=== PATIENT | male | born 1990 | race Caucasian/White ===

== ENCOUNTER 2017-02-17 21:07 | Emergency (ER) | payer SELFPAY ==
[2017-02-17] MEDS ORDERED: ONDANSETRON 4 MG/2 ML VIAL IVP STA (21:31)
[2017-02-17] MEDS ORDERED: SODIUM CHLORIDE 0.9% 1,000 ML IV ONE (21:31)
[2017-02-17] MEDS ORDERED: ONDANSETRON 4 MG/2 ML VIAL ONE (21:32)
--- NOTE | 2017-02-17 21:39 | ED Physician Documentation ---
PD HPI NVD - Stated complaint Stated Complaint: VOMITTING - Chief complaint Chief Complaint: Abd Pain - History obtained from History obtained from: Patient - History of Present Illness Timing - onset: Today Timing - details: Gradual onset, Still present Associated symptoms: Abdominal pain Contributing factors: Bad food Worsened by: Eating Similar symptoms before: No diagnosis Recently seen: Not recently seen - Additonal information Additional information: Patient is a 27 year old male who is presenting to the emergency department for abdominal pain, nausea, vomiting and diarrhea. Patient states that he and his girlfriend had cody burritos yesterday and that they woke up today with nausea, vomiting and abdominal pain. Patient states that his girlfriend got better but he got progressively worse. Patient states that he has had multiple episodes of vomiting and diarrhea throughout the day. Review of Systems Constitutional: denies: Fever, Chills Eyes: denies: Photophobia Ears: denies: Ear pain, Drainage/discharge Nose: denies: Rhinorrhea / runny nose, Congestion Throat: denies: Dental pain / toothache, Oral lesions / sores Cardiac: denies: Chest pain / pressure Respiratory: denies: Cough GI: reports: Abdominal Pain, Nausea, Vomiting, Diarrhea : denies: Dysuria, Frequency, Unable to Void Skin: denies: Rash, Lesions Musculoskeletal: denies: Neck pain, Back pain, Extremity pain Neurologic: denies: Generalized weakness, Focal weakness, Numbness Immunocompromised: denies: Immunocompromised PD PAST MEDICAL HISTORY - Past Medical History Past Medical History: Yes Psych: Depression, Anxiety, ADD/ADHD - Past Surgical History Past Surgical History: No - Present Medications Home Medications: Ambulatory Orders Medication Instructions Recorded Confirmed Dicyclomine [Bentyl] 10 mg PO TID #15 capsule 02/17/17 Ondansetron Odt [Zofran] 4 mg TL Q6H PRN #14 tablet 02/17/17 - Allergies Allergies/Adverse Reactions: Allergies Allergy/AdvReac Type Severity Reaction Status Date / Time No Known Drug Allergies Allergy Verified 02/17/17 21:11 - Social History Does the pt smoke?: Yes Smoking Status: Current every day smoker Does the pt drink ETOH?: Yes Does the pt have substance abuse?: Yes Substance Use and Type: Marijuana - POLST Patient has POLST: No PD ED PE NORMAL - Vitals Vital signs reviewed: Yes - General General: Alert and oriented X 3, No acute distress, Well developed/nourished - HEENT HEENT: Atraumatic, PERRL - Cardiac Cardiac: No murmur, No rub - Derm Derm: Normal color, Warm and dry, No rash - Extremities Extremities: No deformity - Neuro Neuro: Alert and oriented X 3, office lead 2-12 intact, No motor deficit, No sensory deficit, Normal speech - Psych Psych: Normal mood, Normal affect PD ED PE EXPANDED - HEENT HEENT: Dry mucous membranes - Cardiac Cardiac: Tachy - Abdomen Abdomen: Tender to palpation, Epigastric. No: Rebound, Guarding Results - Vitals Vitals: Vital Signs - 24 hr 02/17/17 21:11 Temperature 36.8 C Heart Rate 122 H Respiratory 18 Rate Blood Pressure 123/75 O2 Saturation 97 Oxygen O2 Source Room air - Labs Labs: Laboratory Tests 02/17/17 02/17/17 21:30 21:30 WBC 17.7 H RBC 5.87 Hgb 18.0 Hct 52.1 H MCV 88.7 MCH 30.6 MCHC 34.5 RDW 13.3 Plt Count 335 MPV 7.3 L Neut # 16.5 H Lymph # 0.5 L [place] # 0.5 Eos # 0.0 Baso # 0.2 H Absolute Nucleated RBC 0.01 Nucleated RBCs 0.1 Sodium 141 Potassium 3.9 Chloride 107 Carbon Dioxide 23 Anion Gap 11.0 BUN 17 Creatinine 1.0 Estimated GFR (MDRD) 90 Glucose 125 H Calcium 10.2 Total Bilirubin 1.0 AST 27 ALT 20 Alkaline Phosphatase 65 Total Protein 9.2 H Albumin 5.3 Globulin 3.9 Albumin/Globulin Ratio 1.4 Lipase 18 L PD MEDICAL DECISION MAKING - ED course Complexity details: reviewed old records, reviewed results, re-evaluated patient , considered differential, d/w patient ED course: Patient was seen and examined at bedside. Patient was tachycardic. IV access was gained and labs were drawn. Patient was treated with a fluid bolus, zofran and bentyl. When patient's labs came back they showed he was hemoconcentrated. Patient stated that he was feeling much better. Patient was able to tolerate PO without difficulty and patient was stable for discharge with outpatient follow up. Departure - Departure Disposition: 01 Home, Self Care Clinical Impression: Gastroenteritis Condition: Good Instructions: ED Gastroenteritis Bacterial Follow-Up: primary,care provider [Other] - Within 1 week (if symptoms persist) Prescriptions: Dicyclomine [Bentyl] 10 mg PO TID #15 capsule Ondansetron Odt [Zofran] 4 mg TL Q6H PRN #14 tablet PRN Reason: Nausea / Vomiting Comments: Your symptoms today are likely secondary to food poisoning. You should get better over the next few days. You will need to stay well hydrated with water and electrolyte solution. You can take zofran for the nausea and bentyl or tylenol for abdominal pain. you should follow up with your pmd if your symptoms persist for more than the next few days. You can return to the emergency department at any time for new, worsening or uncontrollable symptoms.
[2017-02-17] MEDS ORDERED: DICYCLOMINE 10 MG CAPSULE PO STA (21:42)
[2017-02-17] MEDS ORDERED: DICYCLOMINE 10 MG CAPSULE PO ONE (21:49)
[2017-02-17 21:56] LABS: BASOPHILS # (AUTO) 0.2 10^3/uL (0.0-0.1); BASOPHILS % (AUTO) 0.9 %; HCT - HEMATOCRIT 52.1 % (42.0-52.0); LYMPHOCYTES # (AUTO) 0.5 10^3/uL (1.5-3.5); LYMPHOCYTES % (AUTO) 3.1 %; MEAN CORPUSCULAR HEMOGLOBIN 30.6 pg (27.0-31.0); MEAN CORPUSCULAR HGB CONC 34.5 g/dL (32.0-36.0); MEAN CORPUSCULAR VOLUME 88.7 fL (80.0-94.0); MEAN PLATELET VOLUME 7.3 fL (7.4-11.4); MONOCYTES # (AUTO) 0.5 10^3/uL (0.0-1.0); MONOCYTES % (AUTO) 2.8 %; NEUTROPHILS # (AUTO) 16.5 10^3/uL (1.5-6.6); NEUTROPHILS % (AUTO) 93.2 %; NUCLEATED RED BLOOD CELLS AUTO 0.1 /100WBC; RED BLOOD COUNT 5.87 10^6/uL (4.70-6.10); RED CELL DISTRIBUTION WIDTH 13.3 % (12.0-15.0); UNCORRECTED WHITE BLOOD COUNT 17.7 x10^3/uL; WHITE BLOOD COUNT 17.7 x10^3/uL (4.8-10.8)
[2017-02-17 22:05] LABS: ALBUMIN/GLOBULIN RATIO 1.4 (1.0-2.2); CALCIUM 10.2 mg/dL (8.5-10.3); POTASSIUM 3.9 mmol/L (3.5-5.0); TOTAL PROTEIN 9.2 g/dL (6.7-8.2)
[2017-02-17] MEDS ORDERED: ONDANSETRON ODT 4 MG Prepack 2 TL STA (22:10)
[2017-02-17] MEDS ORDERED: ONDANSETRON ODT 4 MG Prepack 2 TL ONE (22:26)
[2017-02-17 22:30] VITALS: BP 109/59
== END 2017-02-17 22:37 | disposition home or self-care (01) ==
LOC: ED 21:07
DX: K52.9 Noninfective gastroenteritis and colitis, unspecified (principal); F17.200 Nicotine dependence, unspecified, uncomplicated
CPT/HCPCS: 36415; 80053; 83690; 85025; 96361; 96374; 99283; 99284; A9270; 81001; 81003; 87086

== ENCOUNTER 2020-08-17 17:14 | Outpatient (CLI) | payer OTHER | END 2020-08-17 17:15 | disposition home or self-care (01) | LOC: COV 17:14 | PROVIDERS: ATTEND Family Medicine | DX: R05 Cough (principal); R06.02 Shortness of breath; Z20.828 Contact with and (suspected) exposure to other viral communicable diseases ==